=== PATIENT | female | born 2000 | race Caucasian/White ===

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

== ENCOUNTER 2019-04-27 10:36 | Emergency (ER) | payer OTHER ==
[~2019-04-27] VITALS: Wt 84.1 kg
[~2019-04-27 10:36] MED LIST: CALC600T5 PO; FOLI0.8C PO; PREN-17 PO
[2019-04-27] MEDS ORDERED: FLUT9.9S NASAL (11:26)
[2019-04-27] MEDS ORDERED: NAPR-985 PO (11:26)
[2019-04-27] MEDS ORDERED: PSEU-79 PO (11:26)
[2019-04-27 11:44] VITALS: BP 125/77; PULSE 80; RESP 20
--- NOTE | 2019-04-27 14:13 | ERD ---
ER Documentation Chief Complaint Chief Complaint r. earache HPI 19-year-old female presenting with right ear pain. Patient states without the last 3 days and denies any headaches or fevers. Patient has a mild runny nose. Denies not taken medications for symptoms. Denies cough. Denies medical problems. NKDA. Surgical history denies. Social history denies ROS All systems reviewed and are negative except as per history of present illness. Medications Home Meds Active Scripts Fluticasone Propionate (Flonase Allergy Relief) 9.9 Ml [place].susp, 1 SPRAY NASAL DAILY, #1 BOTTLE TO EACH NOSTRIL Prov:INDIA PEREZ PA-C 04/27/19 Naproxen* (Naprosyn*) 500 Mg Tablet, 500 MG PO BID PRN for PAIN AND/OR INFLAMMATION, #30 TAB Prov:INDIA PEREZ PA-C 04/27/19 Pseudoephedrine Hcl* (Suphedrin*) 30 Mg Tablet, 30 MG PO Q6 PRN for CONGESTION, #30 TAB Prov:INDIA PEREZ PA-C 04/27/19 Reported Medications Folic Acid (Folic Acid) 0.8 Mg Capsule, 0.8 MG PO DAILY, CAP 09/05/17 Calcium Carbonate (CALCIUM) 600 Mg Tablet, 600 MG PO DAILY, TAB 09/05/17 Vit No.78/Iron/FA (Prenatabs FA Tablet) 1 Each Tablet, 1 EACH PO DAILY, TAB 09/05/17 Allergies Allergies: Coded Allergies: No Known Allergy (Unverified , 04/27/19) PMhx/Soc Medical and Surgical Hx: pt denies Medical Hx, pt denies Surgical Hx Hx Alcohol Use: No Hx Substance Use: No Hx Tobacco Use: No Smoking Status: Never smoker FmHx Family History: No diabetes, No coronary disease, No other Physical Exam Vitals Vital Signs Date Temp Pulse Resp B/P (MAP) Pulse Ox O2 O2 Flow FiO2 Time Delivery Rate 04/27/19 98.5 80 20 125/77 99 Room Air 11:44 (93) 04/27/19 98.5 86 20 130/72 99 10:39 (91) Physical Exam GENERAL: The patient is well-appearing, well-nourished, in no acute distress HEENT: Atraumatic. Conjunctivae are pink. Pupils equal, round, and reactive to light. There is no scleral icterus. Tympanic membranes clear bilaterally. Oropharynx clear. NECK: C-spine is soft and supple. There is no meningismus. There is no cervical lymphadenopathy. CHEST: Clear to auscultation bilaterally. There are no rales, wheezes or rhonchi. HEART: Regular rate and rhythm. No murmurs, clicks, rubs or gallops. Procedures/MDM MDM: 19-year-old female presenting with pain the ear. Patient's findings are likely consistent with eustachian tube dysfunction. Ear exam is completely normal. I do not feel antibiotics are indicated. Patient is discharged with strict ER precautions and told to follow-up with primary care within 1 to 2 days for close evaluation. Patient is told symptoms change or worsen to return immediately to the ER. All questions answered at discharge Departure Diagnosis: Primary Impression: Eustachian tube dysfunction Condition: Stable Patient Instructions: Middle Ear Problems (in Children) Referrals: [facility] YOU HAVE RECEIVED A MEDICAL SCREENING EXAM AND THE RESULTS INDICATE THAT YOU DO NOT HAVE A CONDITION THAT REQUIRES URGENT TREATMENT IN THE EMERGENCY DEPARTMENT. FURTHER EVALUATION AND TREATMENT OF YOUR CONDITION CAN WAIT UNTIL YOU ARE SEEN IN YOUR DOCTORS OFFICE WITHIN THE NEXT 1-2 DAYS. IT IS YOUR RESPONSIBILITY TO MAKE AN APPOINTMENT FOR FOLOW-UP CARE. IF YOU HAVE A PRIMARY DOCTOR --you should call your primary doctor and schedule an appointment IF YOU DO NOT HAVE A PRIMARY DOCTOR YOU CAN CALL OUR PHYSICIAN REFERRAL HOTLINE AT IF YOU CAN NOT AFFORD TO SEE A PHYSICIAN YOU CAN CHOSE FROM THE FOLLOWING [facility] [address] [facility] [address] [facility] [facility] [address] [facility] [facility] [address] [facility]. [facility] [address] [facility] [facility]. [address] Additional Instructions: FOLLOW UP WITH YOUR PRIMARY CARE PHYSICIAN TOMORROW.Return to this facility if you are not improving as expected. INDIA PEREZ PA-C Apr 27, 2019 14:13
[2019-05-09] MEDS ORDERED: IBUP800T48 PO (05:45)
[2019-05-09] MEDS ORDERED: CEPH-443 PO (05:45)
[2019-05-09] MEDS ORDERED: BEN25 PO (05:45)
== END 2019-04-27 11:45 | disposition home or self-care (01) ==
LOC: FTE 10:36
DX: H69.91 Unspecified Eustachian tube disorder, right ear (principal)
CPT/HCPCS: 99283

== ENCOUNTER 2019-05-09 04:30 | Emergency (ER) | payer OTHER ==
[~2019-05-09] VITALS: Ht 160 cm; Wt 107.6 kg
[~2019-05-09 04:30] MED LIST changes: +BEN25 PO; +CEPH-443 PO; +FLUT9.9S NASAL; +IBUP800T48 PO; +NAPR-985 PO; +PSEU-79 PO
[2019-05-09 04:32] VITALS: BP 132/78; PULSE 80; RESP 18; Ht 160 cm; Wt 107.6 kg
--- NOTE | 2019-05-09 04:51 | ERD ---
ER Documentation Chief Complaint Chief Complaint insect bites to right arm, left leg x 2 days, c/o pain/itch HPI This is a 19-year-old female presents emergency department with complaints of right upper extremity insect bite, left thigh insect bite. Stated that he had an insect bite last Thursday when she was playing in the pool. Stated that she came here because she has left calf tenderness. LMP: April 29, 2019. G1, . Denies headache, head injury, loss of consciousness, dizziness, neck pain, neck stiffness, throat pain, difficulty swallowing, difficulty breathing lying flat, shoulder pain, chest pain, back pain, abdominal pain, nausea, vomiting, constipation, diarrhea, urinary symptoms, or possibility being , loss of bowel and bladder control, trauma, injury, falls, difficulty walking due to pain, numbness or tingling sensation, calf pain, recent travel, recent major surgery in the last 3 weeks, calf pain, recent long travel, recent exposure to any illness, recent antibiotic use in the last 3 months, fever, chills, seizures. Past medical history: Denies. Surgical history: Denies. Social: Denies smoking, use of alcoholic beverages, use of illegal drugs. ROS All systems reviewed and are negative except as per history of present illness. Medications Home Meds Active Scripts Ibuprofen* (Motrin*) 800 Mg Tab, 800 MG PO Q8 PRN for PAIN AND OR ELEVATED TEMP, #30 TAB Prov:STAS GEE F 05/09/19 Diphenhydramine Hcl* (Benadryl*) 25 Mg Cap, 25 MG PO Q6 PRN for ITCHING/RASH, #30 TAB Prov:STAS GEE 05/09/19 Cephalexin* (Keflex*) 500 Mg Capsule, 500 MG PO TID for 7 Days, CAP Prov:PASILAMATILDA LANDAAR F 05/09/19 Fluticasone Propionate (Flonase Allergy Relief) 9.9 Ml [place].susp, 1 SPRAY NASAL DAILY, #1 BOTTLE TO EACH NOSTRIL Prov:INDIA PEREZ PA-C 04/27/19 Naproxen* (Naprosyn*) 500 Mg Tablet, 500 MG PO BID PRN for PAIN AND/OR INFLAMMATION, #30 TAB Prov:INDIA PEREZ PA-C 04/27/19 Pseudoephedrine Hcl* (Suphedrin*) 30 Mg Tablet, 30 MG PO Q6 PRN for CONGESTION, #30 TAB Prov:INDIA PEREZ PA-C 04/27/19 Reported Medications Folic Acid (Folic Acid) 0.8 Mg Capsule, 0.8 MG PO DAILY, CAP 09/05/17 Calcium Carbonate (CALCIUM) 600 Mg Tablet, 600 MG PO DAILY, TAB 09/05/17 Vit No.78/Iron/FA (Prenatabs FA Tablet) 1 Each Tablet, 1 EACH PO DAILY, TAB 09/05/17 Allergies Allergies: Coded Allergies: No Known Allergy (Unverified , 04/27/19) PMhx/Soc Hx Alcohol Use: No Hx Substance Use: No Hx Tobacco Use: No Physical Exam Vitals Physical Exam Const: No acute distress Head: Atraumatic Eyes: Normal Conjunctiva ENT: Normal External Ears, Nose and Mouth. Neck: Full range of motion. No meningismus. Resp: Clear to auscultation bilaterally Cardio: Regular rate and rhythm, no murmurs Abd: Soft, non tender, non distended. Normal bowel sounds Skin: No petechiae or rashes Back: No midline or flank tenderness Ext: No cyanosis, or edema. Left thigh: Has a circular redness measuring approximately 2 cm in diameter. Left thigh has a tenderness to palpation. Capillary feels to left lower extremity is less than 2 seconds. No neurovascular deficit. Ambulatory with steady gait. Neur: Awake and alert. No neurological deficits. Psych: Normal Mood and Affect Results 24 hrs Laboratory Tests Test 05/09/19 05:39 POC Beta HCG, Qualitative NEGATIVE Current Medications Medications Dose Sig/Harsh Start Time Status Last (Trade) Ordered Route PRN Stop Time Admin Dose Reason Admin Ketorolac 30 mg ONCE STAT 05/09/19 DC 05/09/19 Tromethamine IM 05:40 05:47 (Toradol) 05/09/19 05:42 25 mg ONCE ONCE 05/09/19 DC 05/09/19 Diphenhydrami PO 06:00 05:47 ne HCl 05/09/19 06:00 (Benadryl) Procedures/MDM Diagnostic tests: POC urine : Negative. Ultrasound of the left lower extremity: No evidence for left leg deep venous thrombosis. Treatment: Toradol IM. Benadryl p.o. Re-evaluation: Denies pain. No neurovascular deficits. No neurological deficits. Stated that she feels much better at this time and that she is ready to go home. Stated that she is comfortable to go home. Differential diagnosis I have low suspicion for DVT, deep space infection, osteomyelitis, septic joint, compartment syndrome. Final diagnosis: Infected insect bite. Patient insisted oral antibiotics for her insect bite. Stated that she feels like she is can have an infection. Prescription: Keflex. Motrin. Benadryl. Follow-up with PCP in the next 24-48 hours. Come back here in the emergency department for any new symptoms or any worsening symptoms. All questions and concerns were answered. Patient and family members verbalized understanding and agreed with plan of care. Hemodynamically stable on discharge. Departure Diagnosis: Primary Impression: Insect bite, infected Additional Impression: Cellulitis Condition: Stable Additional Instructions: Follow-up with PCP in the next 24-48 hours. Come back here in the emergency department for any new symptoms or any worsening symptoms. STAS GEE May 09, 2019 04:51
[2019-05-09] MEDS ORDERED: KETOROLAC 30 MG INJ IM STA (05:40)
[2019-05-09] MEDS ORDERED: DIPHENHYDRAMINE 25 MG CAP PO ONE (06:00)
== END 2019-05-09 05:53 | disposition home or self-care (01) ==
LOC: FTE 04:30
DX: S70.362A Insect bite (nonvenomous), left thigh, initial encounter (principal); L08.9 Local infection of the skin and subcutaneous tissue, unspecified; L03.90 Cellulitis, unspecified; W57.XXXA Bitten or stung by nonvenomous insect and other nonvenomous arthropods, initial encounter; Y92.89 Other specified places as the place of occurrence of the external cause
CPT/HCPCS: 81025; 93971; 96372; J1885; Z7502; Z7610